=== PATIENT | male | born 1955 | race Caucasian/White ===

== ENCOUNTER 2016-08-10 07:39 | Emergency (ER) | payer BC ==
[2016-08-10 08:50] LABS: HEMOGLOBIN 17.3 gm/dl (14.0-17.5); RED BLOOD COUNT 5.81 M/UL (4.20-5.50); WHITE BLOOD COUNT 7.9 K/UL (4.5-11.0)
[2016-08-10 09:12] LABS: BUN/CREATININE RATIO 20 (0-10)
[2016-10-29] MEDS ORDERED: RANEXA500 MG PO (07:36)
[2016-10-29] MEDS ORDERED: METOPROLOL TART50 MG PO (07:36)
[2016-10-29] MEDS ORDERED: QUINAPRIL HCL40 MG PO (07:37)
[2016-10-29] MEDS ORDERED: HYDROCHLOROTHIA25 MG PO (07:37)
[2016-10-29] MEDS ORDERED: ZETIA10 MG PO (07:37)
[2016-10-29] MEDS ORDERED: TESTOSTERON100 MG/ML IM (07:38)
[2016-10-29] MEDS ORDERED: ESOMEPRAZOLE MA40 MG PO (07:38)
[2016-10-29] MEDS ORDERED: ASPIRIN81 MG PO (07:38)
[2016-10-29] MEDS ORDERED: MULTIVITAMINS1 EAC1 PO (07:39)
[2016-10-29] MEDS ORDERED: FLUCONAZOLE150 MG PO (07:39)
[2016-10-29] MEDS ORDERED: DURAGESIC 50 MCG1 EA TD (07:40)
[2016-10-30] MEDS ORDERED: PLAVIX 75 MG TA75 MG PO (08:57)
== END 2016-08-10 13:52 | disposition home or self-care (01) ==
LOC: ER1 07:39
PROVIDERS: Physician Assistant
DX: R06.02 Shortness of breath (principal); R06.2 Wheezing; R05 Cough; I10 Essential (primary) hypertension; E78.5 Hyperlipidemia, unspecified; F17.200 Nicotine dependence, unspecified, uncomplicated; Z95.1 Presence of aortocoronary bypass graft
CPT/HCPCS: 36415; 36600; 71010; 80053; 82550; 82553; 82803; 83874; 83880; 84484; 85025; 87040; 93005; 96374; 99285; J2930; J7050; Q9963

== ENCOUNTER → 2016-09-05 | Outpatient (CLI) | payer BC ==
[~2016-09-05] MED LIST: ASPIRIN81 MG PO; DURAGESIC 50 MCG1 EA TD; ESOMEPRAZOLE MA40 MG PO; FLUCONAZOLE150 MG PO; HYDROCHLOROTHIA25 MG PO; METOPROLOL TART50 MG PO; MULTIVITAMINS1 EAC1 PO; PLAVIX 75 MG TA75 MG PO; QUINAPRIL HCL40 MG PO; RANEXA500 MG PO; TESTOSTERON100 MG/ML IM; ZETIA10 MG PO
== END ==
LOC: KOH-I 11:13
DX: R60.9 Edema, unspecified (principal); R09.89 Other specified symptoms and signs involving the circulatory and respiratory systems; J98.09 Other diseases of bronchus, not elsewhere classified
CPT/HCPCS: 71020

== ENCOUNTER → 2016-09-14 | Outpatient (CLI) | payer BC | LOC: US 14:15 | DX: M79.606 Pain in leg, unspecified (principal); R60.9 Edema, unspecified; R09.89 Other specified symptoms and signs involving the circulatory and respiratory systems | CPT/HCPCS: 93922; 93925 ==